=== PATIENT | male | born 1985 | race Caucasian/White ===

== ENCOUNTER 2016-03-27 15:00 | Emergency (ER) | payer SELFPAY ==
[~2016-03-27] VITALS: Ht 180.3 cm; Wt 77.1 kg
[2016-03-27] MEDS ORDERED: LORAZEPAM 1 MG TABLET. PO ONE (15:30)
--- NOTE | 2016-03-27 16:22 | PHYS DOC ---
Past Medical History Past Medical History: Anxiety, Depression Past Surgical History: No Surgical History Additional Information: 1 PPD Alcohol Use: None Drug Use: None Adult General Chief Complaint Chief Complaint: CHEST PAIN HPI HPI 30-year-old male presenting to the emergency department today with chest pain and lightheadedness for about 45 minutes. He has a strong history of anxiety and reports feeling anxious. He denies any history of diabetes hypertension hyperlipidemia. He denies family history of heart disease. He is a current smoker. He denies personal history or family history of blood clotting disorders. He denies unilateral leg swelling or sudden chest pain. He denies hemoptysis. His chest pain is sharp nonradiating. Nothing exacerbates his pain. He took lorazepam as he does have a strong history of anxiety which mildly improved his symptoms. He denies diaphoresis or nausea or vomiting. Review of systems is negative for fevers chills cough. He denies abdominal pain. All other review of systems is negative unless otherwise noted in history of present illness. Review of Systems Review of Systems SEE ABOVE. Current Medications Current Medications Current Medications Medications (Trade) Dose Ordered Sig/Savage Start Time Stop Time Status Last Admin Dose Admin Lorazepam (Ativan) 1 mg 1X ONCE 03/27/16 15:30 03/27/16 15:31 DC 03/27/16 15:41 1 MG Allergies Allergies Allergies Coded Allergies Type Severity Reaction Last Updated Verified No Known Drug Allergies 03/27/16 No Physical Exam Physical Exam Constitutional: Well developed, well nourished, no acute distress, non-toxic appearance. HENT: Normocephalic, atraumatic, bilateral external ears normal, oropharynx moist, no oral exudates, nose normal. [] Eyes: PERRLA, EOMI, conjunctiva normal, no discharge. Neck: Normal range of motion, no tenderness, supple, no stridor. [] Cardiovascular:Heart rate regular rhythm, no murmur Lungs & Thorax: Bilateral breath sounds clear to auscultation [] Abdomen: Bowel sounds normal, soft, no tenderness, no masses, no pulsatile masses. [] Skin: Warm, dry, no erythema, no rash. Back: No tenderness, no CVA tenderness. [] Extremities: No tenderness, no cyanosis, no clubbing, ROM intact, no edema. Neurologic: Alert and oriented X 3, normal motor function, normal sensory function, no focal deficits noted. [] Psychologic: Affect normal, judgement normal, mood normal. [] Current Patient Data Vital Signs Vital Signs Date Time Temp Pulse Resp B/P Pulse Ox O2 Delivery O2 Flow Rate FiO2 03/27/16 16:37 70 15 116/74 98 Room Air 03/27/16 15:06 97.6 97.6 EKG EKG EKG shows sinus rhythm with regular rate. Normal intervals. Normal axis. ST segments are congruent. Not suggestive of ACS. Reviewed by myself. Radiology/Procedures Radiology/Procedures [] Chest x-ray shows no acute pneumonia/infiltrate or pneumothorax. Course & Med Decision Making Course & Med Decision Making Pertinent Labs and Imaging studies reviewed. (See chart for details) [] 30-year-old male presenting the emergency department with chest pain. I considered ACS pneumothorax pulmonary embolism Boerhaave's and dissection. I felt this to be not consistent with a patient's clinical presentation. EKG unremarkable. Vital signs unremarkable. Chest x-ray unremarkable. The patient was given lorazepam in the emergency department which strongly improved his symptoms. He is feeling much better and subsequent discharged home to follow up with his PCP. Dragon Disclaimer Dragon Disclaimer This electronic medical record was generated, in whole or in part, using a voice recognition dictation system. Departure Departure Impression: Primary Impression: Chest pain Disposition: 01 HOME, SELF-CARE Condition: STABLE Referrals: SHAYNA ADAMSON MD Patient Instructions: Chest Pain (Nonspecific) Additional Instructions: Thank you for allowing us to participate in your care today. Followup with your primary care physician in 3 days if your symptoms do not improve. If you do not have a primary care provider you can ask for a list of our primary care providers. Return to the emergency department you have any new or concerning findings. This should be evaluated by the primary care physician and any necessary consulting services for continued management within a few days after discharge. Return to emergency room if you have any new or concerning symptoms including but not limited to fever, chills, nausea, vomiting, intractable pain, any new rashes, chest pain, shortness of air, uncontrolled bleeding, difficulty breathing, and/or vision loss. ALFONSO MARCUM MD Mar 27, 2016 16:22
[2016-03-27 16:37] VITALS: BP 116/74
--- NOTE | 2016-03-28 08:37 | EKG ---
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
--- NOTE | 2016-03-28 12:00 | RAD ---
PA and lateral chest radiographs 03/27/2016. Clinical History: Chest pain and shortness of breath. PA and lateral digital radiographs of the chest were obtained. No previous studies are available for comparison. The cardiac and mediastinal silhouettes are within normal limits in size and configuration. No pulmonary infiltrate is seen. No pleural effusion or pneumothorax is noted. The osseous structures are grossly intact. Impression: No radiographic evidence of active cardiopulmonary disease.
== END 2016-03-27 16:37 | disposition home or self-care (01) ==
LOC: ER 15:00
DX: R07.89 Other chest pain (principal); F17.200 Nicotine dependence, unspecified, uncomplicated; F32.9 Major depressive disorder, single episode, unspecified; F41.9 Anxiety disorder, unspecified
CPT/HCPCS: 71020; 93005; 99284-25

== ENCOUNTER 2016-09-10 16:06 | Emergency (ER) | payer SELFPAY ==
[2016-09-10 16:20] VITALS: BP 121/76
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
== END 2016-09-10 17:05 | disposition home or self-care (01) ==
LOC: ER 16:06
DX: Z77.098 Contact with and (suspected) exposure to other hazardous, chiefly nonmedicinal, chemicals (principal); F41.9 Anxiety disorder, unspecified; F32.9 Major depressive disorder, single episode, unspecified
CPT/HCPCS: 99281

== ENCOUNTER 2016-10-26 16:21 | Emergency (ER) | payer SELFPAY ==
[~2016-10-26] VITALS: Ht 180.3 cm; Wt 84.8 kg
[2016-10-26] MEDS ORDERED: IV NORMAL SALINE 1000ML BAG 1,000 ML IV ONE (17:15)
[2016-10-26] MEDS ORDERED: IOHEXOL 300 MG/ML 75 ML VIAL IV ONE (17:30)
[2016-10-26] MEDS ORDERED: CONTRAST GIVEN MC PRN (17:30)
[2016-10-26 17:58] LABS: BILIRUBIN,URINE NEGATIVE (NEG); GLUCOSE,URINE NEGATIVE (NEG); NITRITE,URINE NEGATIVE (NEG); PROTEIN,URINE NEGATIVE (NEG-TRACE); UROBILINOGEN,URINE 0.2 mg/dL (0.2 mg/dL)
[2016-10-26 18:01] LABS: BASO % 0 % (0-3); EOS % 2 % (0-3); HEMATOCRIT 45.1 % (39.0-53.0); HEMOGLOBIN 15.2 g/dL (13.0-17.5); LYMPH # 1.8 x10^3/uL (1.0-4.8); LYMPH % 28 % (24-48); MEAN CORPUSCULAR HEMOGLOBIN 31 pg (25-35); MEAN CORPUSCULAR HGB CONC 34 g/dL (31-37); MEAN CORPUSCULAR VOLUME 91 fL (79-100); MONO % 8 % (0-9); NEUT % 62 % (31-73); PLATELET COUNT 186 x10^3/uL (140-400); RED BLOOD COUNT 4.99 x10^6/uL (4.30-5.70); RED CELL DISTRIBUTION WIDTH 13.5 % (11.5-14.5); WHITE BLOOD COUNT 6.4 x10^3/uL (4.0-11.0)
[2016-10-26] MEDS ORDERED: IOHEXOL 300 MG/ML 75 ML VIAL ONE (18:14)
[2016-10-26 18:15] LABS: CALCIUM 8.8 mg/dL (8.5-10.1); CREATININE 1.1 mg/dL (0.7-1.3); GFR 78.1; POTASSIUM 4.1 mmol/L (3.5-5.1)
[2016-10-26 18:25] LABS: BACTERIA,URINE FEW /HPF (0-FEW); RBC,URINE 0 /HPF (0-2); SQUAMOUS EPITHELIAL CELL,UR OCC /LPF; WBC,URINE OCC /HPF (0-4)
[2016-10-26 18:30] LABS: ALBUMIN 3.8 g/dL (3.4-5.0); ALBUMIN/GLOBULIN RATIO 1.2 (1.0-1.7); MAGNESIUM 1.9 mg/dL (1.8-2.4); TOTAL BILIRUBIN 0.7 mg/dL (0.2-1.0); TOTAL PROTEIN 6.9 g/dL (6.4-8.2)
--- NOTE | 2016-10-26 18:44 | RAD ---
Examination: CT of the abdomen pelvis with IV contrast HISTORY: History of right lower quadrant abdominal pain, nausea, vomiting COMPARISON: None available TECHNIQUE: Axial CT images of the abdomen pelvis were performed with IV contrast. Coronal and sagittal reformatted performed Exposure: One or more of the following individualized dose reduction techniques were utilized for this examination: 1. Automated exposure control 2. Adjustment of the mA and/or kV according to patient size 3. Use of iterative reconstruction technique FINDINGS: The bibasilar lungs are clear. No evidence of free air identified in the abdomen. The visualized liver, spleen, adrenals grossly appears unremarkable. The gallbladder is minimally distended. The stomach is mildly distended. The visualized pancreas grossly appears unremarkable. The small bowel is nondilated. The appendix is normal. Feces and gas noted in the colon. There is minimal thickened appearance of the wall of the descending colon could nondistention or minimal colitis. The urinary bladder is mildly distended. The bilateral kidneys enhance symmetrically. The caliber of the aorta grossly appears unremarkable. No evidence of lytic bony destructive lesion. IMPRESSION: 1. Mild thickened appearance of the wall of the descending colon probably secondary to nondistention or minimal colitis. Correlate clinically. 2. The appendix is normal. Electronically signed by: Eduin Mancia MD (10/26/2016 6:41 PM) [facility]
[2016-10-26] MEDS ORDERED: metroNIDAZOLE 500 MG TABLET PO ONE (19:00)
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
[2016-10-26] MEDS ORDERED: METR500T PO (19:45)
[2016-10-26] MEDS ORDERED: ONDA4TAB10 PO (19:45)
[2016-10-26] MEDS ORDERED: LEVO500T59 PO (19:45)
[2016-10-26] MEDS ORDERED: HYDR-971 PO (19:45)
[2016-10-26 19:46] VITALS: BP 121/79
== END 2016-10-26 19:49 | disposition home or self-care (01) ==
LOC: ER 16:21
DX: K52.9 Noninfective gastroenteritis and colitis, unspecified (principal); F43.10 Post-traumatic stress disorder, unspecified
CPT/HCPCS: 36415; 74177; 80053; 81001; 82550; 83605; 83735; 85025; 96361; 96374; 99285; J2060; J7030; Q9967